=== PATIENT | female | born 1990 | race Caucasian/White ===

== ENCOUNTER 2022-10-15 01:22 | Inpatient (IN) | payer OTHER, SELFPAY ==
[2022-10-15] VITALS (91 sets, daily range): BP systolic 105–186; BP diastolic 51–130; PULSE 55–106; RESP 16–18; TEMP 36.4–37.3; O2SAT 82–100; BMI 25.8
[2022-10-15 01:21] LABS: ROM Internal Control Test YES-OK TO RESULT pt. (Internal QC); ROM Patient Test POSITIVE (Negative); Record Kit Lot#, ROM+ K1374
[2022-10-15] MEDS: Lactated Ringers 1,000 ML 50 ML IV (01:30)
[2022-10-15] MEDS: LACTATED RINGERS 500 ML 999 ML IV (01:40)
[2022-10-15 01:52] LABS: Absolute Lymphocyte Count 3.32 X10^3/uL (0.83-4.51); Absolute Neutrophil Count 4.8 X10^3/uL (2.0-7.7); Basophil# 0.02 X10^3/uL; Basophil% 0.2 % (0-1); Eosinophil# 0.02 X10^3/uL; Eosinophils% 0.2 % (0-5); Hematocrit 34.2 % (37-47); Hemoglobin 11.3 g/dL (12.0-15.0); Lymphocyte # 3.32 X10^3/ul (0.83-4.51); Lymphocyte % 37.5 % (19-41); Mean Corpuscular Hgb 29.7 pg (27.0-32.0); Mean Platelet Vol. 10.5 fl (6.2-12.0); Monocyte# 0.67 X10^3/uL; Monocyte% 7.6 % (0-10); NRBC Flagged by Analyzer 0 % (0-5); Neutrophil % 54.2 % (47-70); Platelet Count 302 K/mm3 (150-450); RBC Distribution Width CV 12.6 % (11.6-14.6); RBC Distribution Width SD 41.1 fl (35.1-43.9); White Blood Count 8.9 K/mm3 (4.4-11.0)
[2022-10-15] MEDS: Ondansetron 4 MG/2 ML Vial IV ×3 (02:20→14:33)
[2022-10-15 02:44] LABS: Syphilis Antibodies Non-reactive
[2022-10-15] MEDS: fentaNYL-bupivacaine (epidural) 100 ML BAG EPIDURAL ×2 (02:49→07:07)
--- NOTE | 2022-10-15 04:43 | PCM.HP.OB ---
HPI - General General Date of Admission: 10/15/22 Date of Service: 10/15/22 Chief Complaint: srom HPI Narrative LYNDSEY BEGUM, is a 32 F @ 40+ weeks who presents c/o SROM and ctx. PFSH PFS Medical History (Updated 10/15/22 @ 05:[address] Afsaneh Mendoza MD) Anxiety Home Medications Colace 1 dose PO.IVFORM DAILY PRN Constipation 10/15/22 [History Last Taken 10/14/22] aspirin 81 mg chewable tablet 162 mg PO DAILY COVID 10/15/22 [History Last Taken 10/14/22] famotidine 20 mg tablet (Pepcid) 20 mg PO DAILY indigestion 10/15/22 [History Last Taken 10/14/22] nitrofurantoin monohydrate/macrocrystals 100 mg capsule (Macrobid) 100 mg PO PRN PRN recurrent UTIs, takes after intercourse 10/15/22 [History Last Taken 10/14/22] [id number] 1 mg tablet 1 tab PO DAILY 10/15/22 [History Last Taken 10/14/22] Allergy/AdvReac Type Severity Reaction Status Date / Time amoxicillin [From Augmentin] AdvReac Nausea Verified 10/15/22 00:44 clavulanic acid AdvReac Nausea Verified 10/15/22 00:44 [From Augmentin] Surgical History (Updated 10/15/22 @ 00:55 by Zahra Mata) History of surgery Social History Smoking Status: Never smoker History Elective abortions Hx Para 0 Spontaneous abortions Hx # Term Pregnancies Ectopic pregnancies Hx # Pregnancies Multiple births # of living children Vital Signs Vital Signs Vital Signs: 10/15/22 00:48 10/15/22 00:48 10/15/22 00:48 Temperature Temperature Source Temporal Pulse Rate 71 Blood Pressure 127/72 H BP Systolic 127 BP Diastolic 72 Pulse Ox 10/15/22 00:48 10/15/22 02:32 10/15/22 02:32 Temperature 98.3 F Temperature Source Pulse Rate 73 Blood Pressure BP Systolic BP Diastolic Pulse Ox 100 10/15/22 02:37 10/15/22 02:37 10/15/22 02:37 Temperature Temperature Source Pulse Rate 78 Blood Pressure 134/89 H BP Systolic 134 BP Diastolic 89 Pulse Ox 99 10/15/22 02:42 10/15/22 02:42 10/15/22 02:42 Temperature Temperature Source Pulse Rate 69 Blood Pressure 127/80 H BP Systolic 127 BP Diastolic 80 Pulse Ox 100 10/15/22 02:49 10/15/22 02:49 10/15/22 02:48 Temperature Temperature Source Pulse Rate 82 Blood Pressure 120/58 L BP Systolic 120 BP Diastolic 58 Pulse Ox 99 10/15/22 02:52 10/15/22 02:52 10/15/22 02:53 Temperature Temperature Source Pulse Rate 77 87 Blood Pressure 120/59 L BP Systolic 120 BP Diastolic 59 Pulse Ox 10/15/22 02:53 10/15/22 02:58 10/15/22 02:58 Temperature Temperature Source Pulse Rate 84 Blood Pressure BP Systolic BP Diastolic Pulse Ox 99 98 10/15/22 02:59 10/15/22 02:59 10/15/22 03:03 Temperature Temperature Source Pulse Rate 86 92 Blood Pressure 113/58 L BP Systolic 113 BP Diastolic 58 Pulse Ox 10/15/22 03:03 10/15/22 03:04 10/15/22 03:04 Temperature Temperature Source Pulse Rate 98 Blood Pressure 153/70 H BP Systolic 153 BP Diastolic 70 Pulse Ox 99 10/15/22 03:03 10/15/22 03:08 10/15/22 03:08 Temperature Temperature Source Pulse Rate 88 Blood Pressure BP Systolic BP Diastolic Pulse Ox 98 96 10/15/22 03:13 10/15/22 03:13 10/15/22 03:18 Temperature Temperature Source Pulse Rate 90 Blood Pressure 186/130 H BP Systolic 186 BP Diastolic 130 Pulse Ox 98 10/15/22 03:18 10/15/22 03:18 10/15/22 03:19 Temperature Temperature Source Pulse Rate 80 Blood Pressure 108/51 L BP Systolic 108 BP Diastolic 51 Pulse Ox 98 10/15/22 03:19 10/15/22 03:19 10/15/22 03:23 Temperature Temperature Source Pulse Rate 75 106 H Blood Pressure BP Systolic BP Diastolic Pulse Ox 98 10/15/22 03:23 10/15/22 03:28 10/15/22 03:28 Temperature Temperature Source Pulse Rate 74 Blood Pressure BP Systolic BP Diastolic Pulse Ox 99 97 10/15/22 03:33 10/15/22 03:33 10/15/22 03:38 Temperature Temperature Source Pulse Rate 75 75 Blood Pressure BP Systolic BP Diastolic Pulse Ox 98 10/15/22 03:38 10/15/22 03:43 10/15/22 03:43 Temperature Temperature Source Pulse Rate 68 Blood Pressure BP Systolic BP Diastolic Pulse Ox 97 97 10/15/22 03:48 10/15/22 03:48 10/15/22 03:53 Temperature Temperature Source Pulse Rate 70 67 Blood Pressure BP Systolic BP Diastolic Pulse Ox 96 10/15/22 03:53 10/15/22 03:58 10/15/22 03:58 Temperature Temperature Source Pulse Rate 82 Blood Pressure BP Systolic BP Diastolic Pulse Ox 96 97 10/15/22 04:03 10/15/22 04:03 10/15/22 04:08 Temperature Temperature Source Pulse Rate 68 66 Blood Pressure BP Systolic BP Diastolic Pulse Ox 95 10/15/22 04:08 10/15/22 04:13 10/15/22 04:13 Temperature Temperature Source Pulse Rate 74 Blood Pressure BP Systolic BP Diastolic Pulse Ox 97 98 10/15/22 04:17 10/15/22 04:18 10/15/22 04:18 Temperature Temperature Source Tympanic Pulse Rate 71 Blood Pressure 105/56 L BP Systolic 105 BP Diastolic 56 Pulse Ox 10/15/22 04:18 10/15/22 04:17 10/15/22 04:23 Temperature 98.1 F Temperature Source Pulse Rate 66 Blood Pressure BP Systolic BP Diastolic Pulse Ox 99 10/15/22 04:23 10/15/22 04:28 10/15/22 04:28 Temperature Temperature Source Pulse Rate 67 Blood Pressure BP Systolic BP Diastolic Pulse Ox 99 100 10/15/22 04:33 10/15/22 04:33 10/15/22 04:39 Temperature Temperature Source Pulse Rate 68 68 Blood Pressure BP Systolic BP Diastolic Pulse Ox 100 10/15/22 04:39 Temperature Temperature Source Pulse Rate Blood Pressure BP Systolic BP Diastolic Pulse Ox 100 Weight Weight: 74.8 kg Body Mass Index (BMI) 25.8 Physical Exam Narrative /-2 , bright red bleeding noted. Const alert and oriented x3 General Appearance: cooperative HEENT normocephalic GI GI Narrative: Gravid, non tender to palpation. OB / External & Speculum: external exam normal Extremity normal to inspection Skin no rashes or lesions noted Neuro oriented x3 and CN's II-XII intact bilaterally Psych Appearance: grossly normal Labs Labs Labs: Blood Type O POSITIVE Antibody Screen NEGATIVE Hct 34.2 % (37-47) L Hgb 11.3 g/dL (12.0-15.0) L Syphilis Total Ab Non-reactive Chlamydia DNA (HEATHER) Negative (Negative) Neisseria gonorrhoeae DNA (HEATHER) Negative (Negative) Assessment & Plan (1) 40 weeks gestation of : (2) SROM (spontaneous rupture of membranes): PLAN: Plan Admit to L&D Mont[facility] FHR/TOCO Epidural for pain Monitor VS Anticipate gbs positive- pcn ordered monitor bleeding- possible small abruption reviewed. FHR cat 1
[2022-10-15] MEDS: Penicillin G 3,000,000 Units 50 ML 100 UNITS IV ×2 (05:57→10:21)
[2022-10-15] MEDS: Lactated Ringers 1,000 ML 200 ML IV (08:10)
[2022-10-15] MEDS: Oxytocin 15 Units/NS 250ml 15 UNITS/250 ML IV.SOLN 83 UNITS IV (12:30)
[2022-10-15] MEDS: Oxytocin 10 UNITS/ML Vial IM (12:30)
--- NOTE | 2022-10-15 12:49 | OP.PCM_ITS ---
Assessment & Plan (1) Vacuum extractor delivery, delivered: (2) Second degree perineal laceration: (3) Single live : Maternal Data Information Final DESHAWN: 10/12/22 Gestational age: 40 3/7 Vaginal Delivery Maternal Presentation Maternal Presentation: Active Labor and Spontaneous Rupture of Membranes Operative Information Date of Procedure: 10/15/22 Pre-Operative Diagnosis: prolonged second stage Post-Operative Diagnosis: same Surgery / Procedure Performed: Vacuum Assisted Vaginal Delivery (outlet) Type of Anesthesia: Epidural Special Medications: none Drain: Berry to straight drain Estimated Blood Loss: 300 Time of Delivery: 12:26 Findings Description of Procedure: Patient had been pushing for hours. When I arrived, there is a mild amount of caput. station was plus 4 out of 5, she was labia with pushing. Pelvis was adequate. Estimated weight was less than 4500 g clinically. Epidural was adequate. Berry catheter is in place. Risk benefits and alternatives to trial of vacuum versus section versus continued pushing were discussed with the patient. She elected for trial of vacuum. The vacuum was placed on the flexion point and vacuum created 550 mmHg. I pulled with 2 contractions to delivery with no pop offs. The vacuum was darrell zahira. A vigorous male was delivered OA over a second-degree perineal laceration. The remainder the infant was delivered with maternal pushing and gentle traction only in less than 15 seconds. The Pitocin infusion was initiated for active management of the third stage. The cord was clamped and cut after 1 minute. The infant was attended to by the waiting nursing staff. The placenta was delivered spontaneously and intact. The cervix and vagina were intact. The second-degree perineal laceration was repaired with 3-0 Vicryl suture in a running standard fashion. Sponge and needle counts were correct. A vaginal sweep was completed by me. Presentation: MARC Amniotic Membrane Rupture Type: Spontaneous Amniotic Fluid Description: Clear and Moderate meconium (right before delivery) Placental Delivery Description: Spontaneous Placenta Disposition: [facility] Cord Vessel Description: 3 Vessels Cord Entanglement: None A Gender: Male (Aneesh) (1 minute): 8 (5 minute): 9 Delayed Cord Clamping: Yes Post Vaginal Delivery Medications Given After Delivery: IV Pitocin Episiotomy Description: None Laceration: 2nd degree Complication Complications: None
[2022-10-15] MEDS: 0.9% Saline Lock 10 ML Syringe IV ×2 (14:33→15:12)
[2022-10-15] MEDS: Ibuprofen 600 MG Tablet PO (17:42)
[2022-10-15] MEDS: Acetaminophen 500 MG Tablet 1000 MG PO (19:47)
[2022-10-16] MEDS: Ibuprofen 600 MG Tablet PO ×3 (00:13→15:34)
[2022-10-16] MEDS: Acetaminophen 500 MG Tablet 1000 MG PO ×2 (02:53→09:39)
[2022-10-16 03:00] VITALS: BP 109/70; PULSE 56; RESP 18; TEMP 36.4
--- NOTE | 2022-10-16 08:36 | PCM.PN.OB ---
Subjective Subjective Some pain in her perineal area. Able to urinate without difficulty. No bowel movement yet. Average lochia. No other complaints this morning Objective Data Objective Data Vital Signs: Vital Signs Temp Pulse Resp BP Pulse Ox O2 Del Method 97.5 F L 56 L 18 109/70 97 Room Air 10/16/22 03:00 10/16/22 03:00 10/16/22 03:00 10/16/22 03:00 10/15/22 23:45 10/15/22 23:45 Oxygen Delivery Method Room Air Weight: 74.8 kg Body Mass Index (BMI) 25.8 Intake & Output: Intake and Output for Last 24 Hours 10/14/22 10/15/22 10/16/22 23:59 23:59 23:59 Intake Total 2129.10 / 2129.10 Output Total 2500 / 2500 Balance -370.90 / -370.90 Lab / Micro Data Result Diagrams: 10/15/22 01:30 Physical Exam Const alert and no apparent distress Narrative: Fundus firm, below umbilicus. Assessment & Plan (1) Single live : PLAN: day #1 doing well. is bottlefeeding and doing well. Patient would like to be discharged home later today if okay with pediatrics. Routine instructions and follow-up. (2) Second degree perineal laceration: (3) Vacuum extractor delivery, delivered:
--- NOTE | 2022-10-16 08:37 | DS.PCM_ITS ---
Providers Date of Admission: 10/15/22 Date of Discharge: 10/16/22 Primary Care Physician: ISAAC VILLAVICENCIO Reason For Visit: VAG DELIVERY Diagnosis Discharge Diagnosis (1) Single live : Status: Acute Code(s): Z37.0 - Single live Plan: day #1 doing well. is bottlefeeding and doing well. Patient would like to be discharged home later today if okay with pediatrics. Routine instructions and follow-up. (2) Second degree perineal laceration: Status: Acute Code(s): O70.1 - Second degree perineal laceration during delivery (3) Vacuum extractor delivery, delivered: Status: Acute Code(s): O75.9 - Complication of labor and delivery, unspecified Medications at Discharge Home Medications Colace 1 dose PO.IVFORM DAILY PRN Constipation 10/15/22 aspirin 81 mg chewable tablet 162 mg PO DAILY COVID 10/15/22 famotidine 20 mg tablet (Pepcid) 20 mg PO DAILY indigestion 10/15/22 nitrofurantoin monohydrate/macrocrystals 100 mg capsule (Macrobid) 100 mg PO PRN PRN recurrent UTIs, takes after intercourse 10/15/22 [id number] 1 mg tablet 1 tab PO DAILY 10/15/22 Hospital Course Summary of Care Provided Hospital Course: Patient was admitted in spontaneous labor at 40 weeks 3 days. She had a vacuum- assisted vaginal delivery on 10/15/2022 without difficulty. By day #1 she was ambulating, urinating tolerating regular diet and was asking to be discharged home. Discharged home with routine instructions and follow-up. Follow-up in the office in 1-2 in 6 weeks or as needed Weight / BMI Weight Weight: 74.8 kg Body Mass Index (BMI) 25.8 ABG / Lab / Microbiology Data Result Diagrams: 10/15/22 01:30 Meaningful Use Info Meaningful Use Diagnoses (Choose all that apply): None applicable Discharge Plan Admission Admit Date/Time: 10/15/22 01:22 Primary Reason for Your Visit: Labor and vacuum-assisted vaginal delivery Attending Provider: Pallavi Kang Primary Care Provider: ISAAC VILLAVICENCIO Discharge Orders/Prescriptions Prescriptions: No Action 1 mg Tablet 1 tab PO DAILY nitrofurantoin monohyd/m-cryst [Macrobid] 100 mg Capsule 100 mg PO PRN PRN (Reason: recurrent UTIs, takes after intercourse) famotidine [Pepcid] 20 mg Tablet 20 mg PO DAILY aspirin [Baby Aspirin] 81 mg Tablet,Chewable 162 mg PO DAILY Colace 1 dose PO.IVFORM DAILY PRN (Reason: Constipation) Referrals / Follow Up: ISAAC VILLAVICENCIO [Other] Disposition Disposition (needs filled in before D/C Order can be placed): Home, Self Care
[2022-10-16 08:49] VITALS: BP 111/75; PULSE 55; RESP 16; TEMP 36.3
[2022-10-16] MEDS: Senna/Docusate Sodium 1 Tablet PO (08:53)
[2022-10-16 12:42] VITALS: BP 102/57; PULSE 69; RESP 16; TEMP 36.1
--- NOTE | 2022-10-16 19:55 | CASEMGMT ---
Social Work Assessment Labor and Delivery Unit Patient Address: [address] [place], [place] Phone number: [phone] Date of Referral: 10/15/2022 Referred By: Dr. Kang Date of Intervention: ??10/16/2022 Time of Intervention:? 1:45 Reason for Referral:? Hx of anxiety History obtained from: medical records and mother of baby (MOB) and FOB Household composition: MOB, FOB, and new baby Patient's parent/guardian status: MOB and FOB have been approx. 4 years and this is their first child. Medical History: No medical concerns with MOB and she had adequate care. This is MOB?s first child. Baby boy, Karan Capps, 7lbs 11oz, 8/9 apgars. Baby is healthy but does have congenital plagiocephaly to be monitored. Educational Status: MOB and FOB are college graduates Financial Status: Denies concerns Supplies: MOB and FOB report having supplies, car seat and bed for baby Childcare/Caregiver(s):? MOB/FOB/Grandparents Transportation:?? No concerns Programs/Agencies Involved: ???None Children Services/Legal Issues: Denies history?? Behavioral Health Issues: ??Mental Health History: MOB reports history of anxiety. Denies any major mental health concerns Substance Use History: Substance abuse denied.? Family History: Denied history. Family/Social Stressors: SIMONE denies any concerns but reports her family is in [place]. Support Systems: FOB, FOB?s parents, MOB?s parents in [place] Depression: Education and resources provided, parents responded appropriately. Shaken Baby: Education and resources provided, parents responded appropriately. Safe Sleeping:Education and resources provided, parents responded appropriately. ASSESSMENT:? MOB and FOB presented as appropriate. Parents both deny any concerns at this time. Parents given resources for [facility] for counseling and assistance if needed. PLAN:? No other services requested or indicated. Josselyn Melendrez FURNITURE FINISHER, [employer] M[employer]ER OPERATOR
== END 2022-10-16 16:15 | disposition home or self-care (01) | DRG 807 ==
LOC: WPOUT 01:24 → WP 01:24
PROVIDERS: Obstetrics & Gynecology; Admitting Provider Obstetrics & Gynecology; Referring Provider Obstetrics & Gynecology; Visit Provider Obstetrics & Gynecology
DX: O63.1 Prolonged second stage (of labor) (principal); Z37.0 Single live birth; O70.1 Second degree perineal laceration during delivery; Z79.82 Long term (current) use of aspirin; Z3A.40 40 weeks gestation of pregnancy
CPT/HCPCS: 59025; 59050; 84112; 85025; 86780; 86850; 86900; 86901; 99221; J7120; A4216; G0378; J2405